=== PATIENT | female | born 1995 | race Caucasian/White ===

== ENCOUNTER 2020-06-22 07:33 | Inpatient (IN) ==
[2020-06-22] MEDS ORDERED: OXYTOCIN 30 UNITS/500 ML BAG IV PRN ×2 (07:42→08:29)
[2020-06-22] MEDS ORDERED: PENICILLIN G POTASSIUM 6 MU in DEXTROSE 5% 250 ML IV ONE (08:15)
[2020-06-22 08:17] LABS: Hematocrit (blood only) 32.7 % (37-47); Hemoglobin 10.8 g/dL (12.0-16.0); Mean Corpuscular Hemoglobin 24.8 pg (25-34); Mean Platelet Volume 12.3 fL (7.4-10.4); Platelet Count 150 K/uL (130-400); RDW Coefficient of Variation 14.3 % (11.5-14.5); RDW Standard Deviation 39.2 fL (36.4-46.3); Red Blood Count 4.36 M/uL (4.2-5.4); White Blood Count 8.72 K/uL (4.8-10.8)
[2020-06-22 08:37] LABS: Alanine Aminotransferase 30 U/L (12-78); Albumin Level 2.5 gm/dl (3.4-5.0); Aspartate Aminotransferase 23 U/L (15-37); BUN Creatinine Ratio 14.5 (10-20); Blood Urea Nitrogen 6 mg/dl (7-18); Calcium 9.1 mg/dl (8.5-10.1); Carbon Dioxide 21 mmol/L (21-32); Chloride 108 mmol/L (98-107); Creatinine Clr Calc Pharmacy 238.2 ml/min; Est GFR (African American) > 150.0; Glucose 114 mg/dl (70-99); Potassium 2.8 mmol/L (3.5-5.1); Sodium 138 mmol/L (136-145)
[2020-06-22 08:40] LABS: Albumin Globulin Ratio 0.7 (0.9-2); Alkaline Phosphatase 191 U/L (45-117); Bilirubin,Total 0.7 mg/dl (0.2-1); Globulin 3.8 gm/dl (2.5-4.0); Total Protein 6.3 gm/dl (6.4-8.2)
[2020-06-22] MEDS: LACTATED RINGER'S 1,000 ML IV PRN ×3 (09:51→21:45)
[2020-06-22] MEDS: PENICILLIN G POTASSIUM 3 MU in DEXTROSE 5% 100 ML IV PRN ×3 (14:04→21:46)
--- NOTE | 2020-06-22 14:09 | Communication Note ---
Date of Service: June 22, 2020 Patient due for PCN 2nd dose and my plan was to recheck and AROM at this point. Another patient is going to require section in the setting of failed TOLAC, therefore Padmini's pitocin will likely be held temporarily due to the scenario on L&D at this time, and we will resume active IOL and add AROM once staffing and scenario allows.
[2020-06-22] MEDS ORDERED: POTASSIUM CHLORIDE CRTAB 20 MEQ TABCR PO ONE ×2 (15:14→22:00)
--- NOTE | 2020-06-22 15:52 | Labor Progress Brief Note ---
Date of Service June 22, 2020 Subjective comfortable, not much cramping as pitocin has been off during care of other urgent issues on L&D. Assessment & Plan (1) Encounter for induction of labor: gHTN and A1GDM, medically indicated induction of labor. Began with adams, continued with pitocin and has been on PCN since Pit started this morning. Pitocin temporarily held due to other events on L&D, now resuming. AROM attempted but attempt was stopped so that patient can receive epidural, will re- attempt once patient able to tolerate the exam comfortably. Admission and Anticipated Discharge Date Admission Date: June 22, 2020 Physical Exam Physical Exam: Pitocin now restarting. /2 AROM attempted but unsuccessful; membranes quite tough, patient in pain with exam. Would like epidural before further attempts. T Cat 1 [place] spaced widely apart. Results & Data ([facility]) Vital Signs (Past 12 Hours) Vital Signs Temp Pulse Resp BP 06/22/20 15:21 88 133/86 06/22/20 15:15 98.2 F 16 06/22/20 14:05 82 129/84 06/22/20 13:00 98.2 F 81 18 125/69 06/22/20 12:06 86 120/75 06/22/20 11:05 97.9 F 80 20 118/72 06/22/20 09:56 81 145/84 H 06/22/20 07:51 98.1 F 20 06/22/20 07:49 93 H 140/95 Coding Level of Care Code None Diagnoses Encounter for induction of labor Z34.90
[2020-06-22] MEDS ORDERED: SODIUM CHLORIDE 0.9% INJ 10 ML VIAL ONE (16:02)
[2020-06-22] MEDS ORDERED: fentaNYL citrate 100 MCG/2 ML VIAL ONE (16:02)
[2020-06-22] MEDS ORDERED: ePHEDrine sulfate 50 MG/ML AMP ONE (16:02)
[2020-06-22] MEDS ORDERED: BUPIVACAINE 0.25% 30 ML VIAL ONE (16:02)
[2020-06-22] MEDS ORDERED: fentaNYL 2MCG/ML ROPIVACAINE 1.25MG/ML 100 ML BAG EPI ONE (16:03)
[2020-06-22] MEDS ORDERED: fentaNYL 2MCG/ML ROPIVACAINE 1.25MG/ML 100 ML BAG EPI PRN (16:51)
[2020-06-22] MEDS ORDERED: ePHEDrine sulfate 50 MG/ML AMP IV PRN (16:51)
[2020-06-22] MEDS ORDERED: NALOXONE HCL 1 MG in SODIUM CHLORIDE 0.9% 1000ML 1,000 ML IV PRN (16:51)
[2020-06-22] MEDS ORDERED: diphenhydrAMINE 50 MG/ML VIAL IV PRN (16:51)
[2020-06-22] MEDS ORDERED: NALOXONE HCL 0.4 MG/1 ML VIAL/CARP IV PRN (16:51)
[2020-06-22] MEDS ORDERED: ONDANSETRON INJ 2 MG/ML 2 ML VIAL IV PRN (16:51)
--- NOTE | 2020-06-22 16:54 | Anesthesiology Consultation ---
Date of Service June 22, 2020 Assessment & Plan Chart Review Chart Review: Patient NOT seen in Pre Admission Testing and Acceptable Risk for Labor Epidural Consults Requested none ASA ASA2 Proposed Anesthesia Anesthesia Type: Labor Epidural and CSE Risk / Benefits Reviewed With: PT / POA / Parent / Guardian, Accepts Plan and Informed Consent Obtained History Height/Weight Height: 5 ft 1 in Weight: 99.337 kg Allergies Allergy/AdvReac Type Severity Reaction Status Date / Time No Known Drug Allergies Allergy Unknown . Verified 06/22/20 08:12 cat dander Allergy Watery Eye Verified 06/22/20 08:12 Medications Home Medications Medication Instructions Recorded Confirmed Last Taken albuterol sulfate 90 mcg/actuation 2 puffs INH Q6H PRN 11/24/18 06/22/20 Unknown aerosol inhaler prenat.vits,javi,ddn-uzvo-wxnsl 1 tab PO QPM 12/01/19 06/22/20 06/21/20 23:00 acetone (urine) test #50 ea 04/18/20 06/21/20 Unknown aspirin 81 mg tablet,delayed 81 mg PO QPM 04/18/20 06/22/20 06/21/20 23:00 release blood sugar diagnostic #150 ea 04/18/20 06/21/20 Unknown blood-glucose meter #1 ea 04/18/20 06/21/20 Unknown lancets #102 ea 04/18/20 06/21/20 Unknown potassium chloride 40 meq PO BID 06/08/20 06/22/20 06/20/20 22:00 sertraline 150 mg PO QPM 06/08/20 06/22/20 06/21/20 23:00 Active Medications Generic Name Dose Route Start Last Admin Trade Name Freq PRN Reason Stop Dose Admin Penicillin G Potassium 3 mu/ 106 mls @ 100 mls/hr 06/22/20 07:42 06/22/20 14:04 Dextrose IV 07/02/20 07:41 100 mls/hr Q4H PRN Administration Give until delivery Lactated Ringer's 1,000 mls @ 125 mls/hr 06/22/20 07:42 06/22/20 16:48 Lr IV 06/24/20 07:41 125 mls/hr .Q8H PRN Infusion L&D Protocol Protocol Oxytocin 30 units in 500 mls @ 5 mls/hr 06/22/20 08:29 06/22/20 16:45 Pitocin IV 06/24/20 08:28 0.3 units/hr .Q24H PRN 5 mls/hr Labor Induction/Augmentation Titration Protocol 0.3 UNITS/HR NPO Date Last Intake of Fluids: 06/22/20 Time Last Intake of Fluids: 15:00 Date Last Intake of Solids: 06/22/20 Time Last Intake of Solids: 10:00 Past Medical History Medical History Asthma Chlamydia tx in 2013 Depression History of upper GI x-ray series Obesity Prediabetes Varicella vaccination Exercise / Class Metabolic Activity II 4-5 Yardwork/Stairs/Walk up hill Past Family History Family History Brother Allergic rhinitis Grandfather (Maternal) Coronary heart disease Father Lymphoma Grandmother (Maternal) Breast cancer Hypertension Hypothyroidism Mother Hypothyroidism Grandfather (Paternal) Parkinson disease Other Diabetes Heart disease Denies family history of Ovarian cancer Prostate cancer Myocardial infarction Colorectal cancer Stroke Past Surgical History Surgical History No pertinent past surgical history Past Anesthesia History No Hx of Anesthesia Complications and No Family Hx of Anesthesia Complications History of PONV No Hx of PONV and No Hx of Motion Sickness Social History Smoking Status: Never smoker Smoking cigarettes per day: quit 2017 Hx Alcohol Use: No Hx Substance Use: No substance use type: does not use Review of Systems no chest pain or sob Physical Exam Vital Signs Last Vital Signs Temp 36.8 C 06/22/20 15:15 Pulse 79 06/22/20 16:42 Resp 16 06/22/20 15:15 BP 133/86 06/22/20 15:21 Pulse Ox 98 06/22/20 16:42 Constitutional + obese ENMT Mouth: no TMJ abnormality Thyromental Distance: > or= 3.5 Finger Breadths Mallampati Class: II Neck normal visual inspection Respiratory normal respiratory effort Auscultation: lungs clear to auscultation bilaterally Cardiovascular Rate/Rhythm: regular rate and regular rhythm Musculoskeletal Spine: normal cervical ROM Neurologic moves all extremities Psychiatric Orientation: alert and oriented x 3 Testing Laboratory Results 06/22/20 07:58 06/22/20 07:58
[2020-06-22] MEDS ORDERED: Nursing to Pharmacy Communication SCH (22:15)
--- NOTE | 2020-06-22 23:40 | Labor Progress Brief Note ---
Date of Service June 22, 2020 Subjective Feeling more pressure Assessment & Plan (1) Encounter for induction of labor: Now adequate contractions, and making cervical change. Continue current management. Admission and Anticipated Discharge Date Admission Date: June 22, 2020 Physical Exam Physical Exam: /2 FHT Cat 1 Pit @ 25 MVU 210 Results & Data ([facility]) Vital Signs (Past 12 Hours) Vital Signs Temp Pulse Resp BP Pulse Ox 06/22/20 23:36 96 H 126/91 06/22/20 23:35 80 97 06/22/20 23:30 70 97 06/22/20 23:25 70 97 06/22/20 23:21 67 130/65 06/22/20 23:20 72 96 06/22/20 23:15 71 96 06/22/20 23:10 73 96 06/22/20 23:06 70 165/80 H 06/22/20 23:05 72 97 06/22/20 23:03 98.4 F 18 06/22/20 23:00 71 97 06/22/20 22:55 78 97 06/22/20 22:51 72 153/85 H 06/22/20 22:50 73 97 06/22/20 22:45 74 98 06/22/20 22:40 74 97 06/22/20 22:36 73 140/82 06/22/20 22:35 75 97 06/22/20 22:30 87 97 06/22/20 22:25 77 97 06/22/20 22:21 75 118/68 06/22/20 22:20 78 98 06/22/20 22:15 77 97 06/22/20 22:10 76 96 06/22/20 22:06 73 108/60 06/22/20 22:05 72 96 06/22/20 22:00 75 96 06/22/20 21:55 68 97 06/22/20 21:50 73 107/60 97 06/22/20 21:45 77 97 06/22/20 21:40 73 97 06/22/20 21:36 71 117/65 06/22/20 21:35 71 98 06/22/20 21:30 67 98 06/22/20 21:25 72 97 06/22/20 21:21 69 109/64 06/22/20 21:20 73 97 06/22/20 21:15 71 97 06/22/20 21:10 84 96 06/22/20 21:05 98.2 F 74 16 137/64 97 06/22/20 21:00 76 97 06/22/20 20:55 88 98 06/22/20 20:52 82 151/79 H 06/22/20 20:50 84 98 06/22/20 20:45 82 97 06/22/20 20:40 80 98 06/22/20 20:36 76 135/78 06/22/20 20:35 72 97 06/22/20 20:30 64 97 06/22/20 20:25 70 97 06/22/20 20:22 70 159/84 H 06/22/20 20:20 68 97 06/22/20 20:15 79 97 06/22/20 20:10 73 97 06/22/20 20:06 74 158/92 H 06/22/20 20:05 71 96 06/22/20 20:00 74 97 06/22/20 19:55 71 97 06/22/20 19:52 73 136/92 06/22/20 19:50 73 132/91 97 06/22/20 19:45 73 97 06/22/20 19:40 67 97 06/22/20 19:35 69 141/85 H 98 06/22/20 19:30 97.7 F 64 16 97 06/22/20 19:25 70 98 06/22/20 19:21 69 138/82 06/22/20 19:20 68 97 06/22/20 19:15 76 97 06/22/20 19:10 81 98 06/22/20 19:06 77 167/96 H 06/22/20 19:05 70 97 06/22/20 19:00 76 97 06/22/20 18:55 75 96 06/22/20 18:50 74 141/82 H 96 06/22/20 18:45 74 97 06/22/20 18:40 74 97 06/22/20 18:35 78 134/80 97 06/22/20 18:30 74 98 06/22/20 18:25 73 98 06/22/20 18:21 79 167/84 H 06/22/20 18:20 79 98 06/22/20 18:15 75 97 06/22/20 18:10 85 98 04/29/21 18:06 79 193/97 H 06/22/20 18:05 79 98 06/22/20 18:00 80 97 06/22/20 17:55 74 98 06/22/20 17:52 75 166/89 H 06/22/20 17:50 78 99 06/22/20 17:48 75 205/98 H 06/22/20 17:45 70 97 06/22/20 17:40 76 97 06/22/20 17:35 74 164/99 H 98 06/22/20 17:32 80 168/86 H 06/22/20 17:30 73 98 06/22/20 17:29 80 149/92 H 06/22/20 17:28 71 149/81 H 06/22/20 17:26 74 147/72 H 06/22/20 17:25 76 98 06/22/20 17:24 69 152/76 H 06/22/20 17:22 75 147/70 H 06/22/20 17:20 74 156/77 H 98 06/22/20 17:17 75 156/74 H 06/22/20 17:15 97.7 F 78 16 164/74 H 98 06/22/20 17:13 70 171/80 H 06/22/20 17:12 75 186/93 H 06/22/20 17:10 84 181/101 H 97 06/22/20 17:06 93 H 205/110 H 06/22/20 17:05 95 H 98 06/22/20 17:04 81 205/127 H 06/22/20 17:00 99 H 98 06/22/20 16:55 92 H 97 06/22/20 16:42 79 98 06/22/20 16:37 77 98 06/22/20 16:32 84 98 06/22/20 16:27 79 99 06/22/20 15:21 88 133/86 06/22/20 15:15 98.2 F 16 06/22/20 14:05 82 129/84 06/22/20 13:00 98.2 F 81 18 125/69 06/22/20 12:06 86 120/75 Coding Level of Care Code None Diagnoses Encounter for induction of labor Z34.90
[2020-06-23] MEDS: PENICILLIN G POTASSIUM 3 MU in DEXTROSE 5% 100 ML IV PRN (02:01)
[2020-06-23] MEDS ORDERED: NURSING L&D Epidural Breakthrough Pain Update ONE (02:22)
--- NOTE | 2020-06-23 04:39 | Delivery Summary ---
Vaginal Delivery Summary Date of Service June 23, 2020 Vaginal Delivery Summary DIAGNOSES: 1. Gao intrauterine at 37w2d gestation. 2. Induction of labor due to gestational hypertension without severe features and A1 gestational diabetes mellitus. 3. Group B Streptococcus Pos, adequately treated. PROCEDURE: Spontaneous vaginal delivery without laceration. SURGEON: Aubree Leonardo MD. CURING ROOM SUPERVISOR: None. ESTIMATED BLOOD LOSS: 300 mL. COMPLICATIONS: None. PLACENTA: Spontaneous and intact with a 3-vessel cord. DISPOSITION: Stable to labor and delivery. DESCRIPTION: The patient pushed well and brought the head to in DOA position. The 's head was allowed to deliver with contraction force and no further active pushing, with the perineum protected during this time. There was a nuchal cord, reduced on the perineum. The shoulders delivered easily with a maternal pushing effort. The body delivered without any difficulty, and the infant was placed on the maternal abdomen. It was vigorous and moving all extremities, and making respiratory efforts. The cord was doubly clamped by the MD and then cut by the FOB. The placenta delivered spontaneously and was noted to be intact and with a 3VC. The cervix, vagina and perineum were examined and were found to be without defect requiring repair. The fundus was firm and lochia minimal immediately after delivery. [facility] Vaginal Delivery Charge Vaginal Delivery Codes: 21596 global code for the antepartum, delivery, and post-
[2020-06-23] MEDS ORDERED: oxyCODONE/ACETAMINOPHEN 5mg/325mg TAB PO PRN (04:59)
[2020-06-23] MEDS ORDERED: SUPERCREAM 0.870% 15 GM JAR EXT PRN (04:59)
[2020-06-23] MEDS ORDERED: BENZOCAINE 20% AER SPR 82.5 GM CAN EXT PRN (04:59)
[2020-06-23] MEDS ORDERED: OXYTOCIN 30 UNITS/500 ML BAG IV PRN (04:59)
[2020-06-23] MEDS ORDERED: ACETAMINOPHEN 325 MG TAB PO PRN (04:59)
[2020-06-23] MEDS ORDERED: LACTATED RINGER'S 1,000 ML IV SCH (04:59)
[2020-06-23] MEDS ORDERED: DIPHTHERIA/TETANUS/PERTUSSIS 0.5 ML SYR/VIAL IM ONE (04:59)
[2020-06-23] MEDS ORDERED: HYDROCORTISONE ACETATE 25 MG SUPP PR PRN (04:59)
[2020-06-23] MEDS: IBUPROFEN 600 MG TAB PO PRN ×3 (06:18→20:54)
[2020-06-23] MEDS ORDERED: PRENATAL VITAMIN 1 TAB PO SCH (08:00)
--- NOTE | 2020-06-23 08:31 | Anesthesia Procedure Note ---
Date of Service June 23, 2020 Anesthesia Post Epidural Note Vital Signs Vital Signs: Temp Pulse Resp BP Pulse Ox 36.9 C 96 H 18 140/81 93 06/23/20 07:25 06/23/20 07:17 06/23/20 07:25 06/23/20 07:17 06/23/20 04:31 Pain Intensity Bilateral Abdomen: Pain Intensity: 6 Notes Mental Status: alert / awake / arousable Nausea / Vomiting: adequately controlled Pain: adequately controlled Airway Patency, RR, SpO2: stable & adequate BP & HR: stable & adequate Hydration State: stable & adequate Neuraxial Anesthesia: was administered and sensory block is resolving Anesthetic Complications: no major complications apparent Epidural: Removed without complications and With tip intact
[2020-06-23] MEDS: DOCUSATE SODIUM 100 MG CAP PO SCH (20:54)
[2020-06-23] MEDS ORDERED: SERTRALINE HCL 50 MG TABLET PO SCH (21:00)
[2020-06-24] MEDS: IBUPROFEN 600 MG TAB PO PRN ×2 (03:17→08:20)
[2020-06-24 06:23] LABS: Mean Corpuscular Hgb Conc 32.5 g/dL (32-36)
[2020-06-24 06:41] LABS: Hematocrit (blood only) 29.5 % (37-47); Hemoglobin 9.6 g/dL (12.0-16.0); Mean Corpuscular Hemoglobin 24.6 pg (25-34); Mean Corpuscular Volume 75.6 fL (80-100); RDW Coefficient of Variation 14.6 % (11.5-14.5); RDW Standard Deviation 40.2 fL (36.4-46.3); White Blood Count 9.75 K/uL (4.8-10.8)
[2020-06-24 06:44] LABS: Mean Platelet Volume 12.2 fL (7.4-10.4); Platelet Count 137 K/uL (130-400)
[2020-06-24 06:45] LABS: Platelet Estimate Normal (Normal)
--- NOTE | 2020-06-24 07:07 | Obstetrical Progress Note ---
Date of Service <Adrien Hunter MD - Last Filed: 06/24/20 07:26> June 24, 2020 Assessment & Plan <Adrien Hunter MD - Last Filed: 06/24/20 07:26> (1) Encounter for induction of labor: Padmini Beckford is a 25yo female on PPD#1 following IOL at 37+2wga. * Patient feels well today; eating well, voiding well, ambulating well * Pain well-controlled with ibuprofen 600mg q4h prn * PNL: Rh pos, RI, GBS pos, COVID neg * Routine care: OOB, ambulation, diet progression as tolerated * After discharge, will have six-week follow-up with Dr. Leonardo * Subjective <Adrien Hunter MD - Last Filed: 06/24/20 07:26> Padmini Beckford is a 25yo female on PPD#1 following IOL at 37+2wga. This morning she reports feeling well overall. Reports mild, 1/10 crampy abdominal pain well-managed on analgesics. Tolerating PO intake without nausea or vomiting. Patient has been able to ambulate without lightheadedness or dizziness. Voiding well without difficulty. Lochia continues, though with some improvement this morning. Currently . Review of Systems Denies fever, chills, CP, SOB, cough, breast pain, dysuria, leg pain, leg swelling, headache, and changes in vision. Physical Exam <Adrien Hunter MD - Last Filed: 06/24/20 07:26> General: alert, oriented, no acute distress Cardiac: regular rate and rhythm, no murmurs appreciated Respiratory: lungs clear to auscultation bilaterally a/p, no wheezes/rales/rhonchi, no increased work of breathing, symmetrical chest rise, no respiratory distress Abdomen: soft, minimally tender, nondistended, bowel sounds present Uterus: uterine fundus firm, palpable below umbilicus Lower extremities: no lower extremity edema or swelling, no deep calf pain, Oumou's negative bilaterally Results & Data ([facility]) <Adrien Hunter MD - Last Filed: 06/24/20 07:26> Vital Signs (Past 12 Hours) Vital Signs Temp Pulse Resp BP 06/24/20 03:30 36.4 C L 85 18 123/86 06/23/20 23:45 36.5 C 91 H 18 121/88 06/23/20 19:50 36.5 C 99 H 18 129/81 <Vika Palumbo DO - Last Filed: 06/24/20 07:28> Co-Signing Physician Notes Resident Physician Supervision Note: I was present with Dr. Hunter during the history and exam. I discussed the case with the resident and agree with the findings and plan as documented in the note. Any exceptions or clarifications are listed here: PPD#1 doing well. Documented By: Vika Palumbo DO Resident Activity Tracking <Adrien Hunter MD - Last Filed: 06/24/20 07:26> Resident Involvement: Resident Care Provided Care Provided: OB Delivery
--- NOTE | 2020-06-24 07:15 | Obstetrical Progress Note ---
Date of Service June 24, 2020 Assessment & Plan (1) Encounter for induction of labor: PPD#1 doing well. Subjective Ambulation: ambulating normally Voiding: no voiding problems Diet Tolerance:: regular diet Lochia:: Moderate Feeding Type:: breast feeding PPD#1 doing well Review of Systems All systems reviewed & are unremarkable except as noted in HPI & below Physical Exam Constitutional WD/WN, vitals as above no acute distress Respiratory normal respiratory effort Cardiovascular Rate/Rhythm: regular rate and regular rhythm Gastrointestinal (Abdomen) Inspection/Auscultation: abdomen normal to inspection; abdomen not distended Percussion/Palpation: abdomen soft Genitourinary OB Exam Abdomen: + fundal height Fundus: + firm; not tender Results & Data ([facility]) Vital Signs (Past 12 Hours) Vital Signs Temp Pulse Resp BP 06/24/20 03:30 36.4 C L 85 18 123/86 06/23/20 23:45 36.5 C 91 H 18 121/88 06/23/20 19:50 36.5 C 99 H 18 129/81
[2020-06-24] MEDS: DOCUSATE SODIUM 100 MG CAP PO SCH (08:19)
== END 2020-06-24 13:45 | disposition home or self-care (01) | DRG 807 ==
LOC: 4S1 07:33 → 4S2 06-23 07:39

== ENCOUNTER 2022-01-21 14:16 | Inpatient (IN) ==
[2022-01-21] MEDS ORDERED: LACTATED RINGER'S 1,000 ML IV PRN (15:03)
[2022-01-21] MEDS ORDERED: LIDOCAINE 1% LOCAL 20 ML VIAL INFIL PRN (15:03)
--- NOTE | 2022-01-21 15:19 | History & Physical Report ---
Date of Service January 21, 2022 Assessment & Plan (1) Gestational diabetes mellitus (GDM) affecting , antepartum: Plan: Patient is a -0-0-1 female seen at the office for possible labor check was noted to have mild variables on her NST and sent to labor and delivery for further evaluation. Patient appears to be in early labor. There are occasional very mild variables present. We will admit her and allow her to ambulate once we have reactive strip. Blood pressures are normal today although she has a history of gestational hypertension in the past. Epidural when requested. We will wait till epidural is in place prior to rupturing membranes. Anticipate vaginal delivery. History of Present Illness Primary Care Provider: Roselia Summers PA-C Patient is a 26-year-old 2 para 1-0-0-1 female EDC 01/24/2022 who presented to the office with bloody show and increasingly more intense contractions. They are about mild variables noted on the nonstress test at the office. She was sent for further evaluation in labor and delivery. contractions are still somewhat irregular from every 3 to 7 minutes apart. She denies any leaking fluid and the baby has been active. has been complicated by gestational diabetes controlled with diet and a history of glomerular proteinuria first diagnosed with her first . Most recent 24-hour urine collection was less than 300 mg. She had a diagnosis of gestational hypertension with her first as well although blood pressures today are within the normal range. GBS is negative. Allergies Allergy/AdvReac Type Severity Reaction Status Date / Time cat dander Allergy Watery Eye Verified 01/14/22 08:54 Iodinated Contrast Media Allergy Wheezing Verified 01/14/22 08:54 Home Medications Medication Instructions Recorded Confirmed Type albuterol sulfate 90 mcg/actuation 2 puffs inhalation Q6H PRN 11/24/18 01/21/22 History aerosol inhaler (ProAir HFA) Shortness Of Breath prenat.vits,javi,qkt-uert-kbkbd 1 tab PO QPM 12/01/19 01/21/22 History acetone (urine) test (Ketone Urine #50 ea 08/02/21 01/14/22 Rx Test strips) blood sugar diagnostic (Accu-Chek #150 ea 08/02/21 01/14/22 Rx Guide test strips) lancets (Accu-Chek Softclix #150 ea 08/02/21 01/14/22 Rx Lancets) aspirin 81 mg tablet,delayed 81 mg PO DAILY 08/15/21 01/21/22 History release (Adult Low Dose Aspirin) ferrous sulfate [Iron (ferrous 325 mg PO 3XWK 11/21/21 01/21/22 History sulfate)] sertraline 100 mg tablet 150 mg PO DAILY 12/30/21 01/21/22 History Patient History Medical History Asthma Chlamydia Depression History of upper GI x-ray series Obesity Prediabetes Varicella vaccination Surgical History No pertinent past surgical history Family History Brother Allergic rhinitis Grandfather (Maternal) Coronary heart disease Father Lymphoma Grandmother (Maternal) Breast cancer Hypertension Hypothyroidism Mother Hypothyroidism Grandfather (Paternal) Parkinson disease Other Diabetes Heart disease Denies family history of Ovarian cancer Prostate cancer Myocardial infarction Colorectal cancer Stroke Social History (Updated 01/21/22 @ 14:34 by Liz Pendleton RN) Smoking Status: Former smoker Cigarettes Per Day: quit 2016; Second Hand Exposure: No; Hx Alcohol Use: No Hx Substance Use: No Preferred Language: Lao Communication Ability: Effective Visual Impairment: Limited Hearing Ability: Normal Medical Records Tech Required: No Beliefs That Will Affect Care: None marital status: marital status details: Charanjit Beckford (29) [phone] Current Living Situation: Spouse Current Living Situation Comment: lives with spouse, son, dogs current occupational status: employed current occupation: [employer] How many Children do You have: 1 Feels Safe at Home: Yes Safety Concerns: Feels Safe At This Time Childhood Exposure to Second-Hand Smoke: Yes Dental Care, Regularly: No Physical Activity Frequency: 1-2 Times per Week Seatbelt Use: always Sunscreen Use: Yes Assistive Devices: None Review of Systems All systems reviewed & are unremarkable except as noted in HPI & below Physical Exam Constitutional: WD/WN, vitals as above Psychiatric: A+Ox3, euthymic affect Genitourinary: OB Exam Abdomen: + vertex, + estimated weight (7-8 pounds) and + irregular contractions (mild -moderate Q3-7 minutes apart) Manual OB Exam: + cervical dilation 4 cm, + cervical effacement 80% and + station -2 OB Exam Monitor Tracing: + external FHT monitor used, + external uterine monitor used, + category II (occasional mild variables. ) and + normal FHT variability Results & Data ([facility]) Vital Signs (Past 12 Hours) Vital Signs Pulse Resp BP 01/21/22 14:36 18 01/21/22 14:41 94 H 101/56 L Code Status & VTE Plan VTE Prophylaxis Plan VTE Prophylaxis will be ordered: No Coding Level of Care Code None Diagnoses Gestational diabetes mellitus (GDM) affecting , antepartum O24.419
[2022-01-21 15:45] LABS: Hematocrit (blood only) 39.2 % (34.1-44.9); Mean Corpuscular Hemoglobin 25.4 pg (25.0-34.0); Mean Corpuscular Hgb Conc 33.2 g/dL (32.0-36.0); Mean Corpuscular Volume 76.7 fL (80.0-100.0); RDW Coefficient of Variation 15.9 % (11.5-14.5); RDW Standard Deviation 44.1 fL (36.4-46.3); Red Blood Count 5.11 M/uL (3.93-5.22); White Blood Count 9.89 K/ul (4.8-10.8)
[2022-01-21 16:15] LABS: Platelet Count 137 K/uL (130-400)
[2022-01-21] MEDS ORDERED: LIDOCAINE 2%/EPINEPHRINE 1:200,000 20 ML SDV ONE (18:03)
[2022-01-21] MEDS ORDERED: SODIUM CHLORIDE 0.9% INJ 10 ML VIAL ONE (18:03)
[2022-01-21] MEDS ORDERED: fentaNYL 2MCG/ML ROPIVACAINE 1.25MG/ML 100 ML BAG EPI ONE (18:03)
[2022-01-21] MEDS ORDERED: ePHEDrine sulfate 50 MG/ML AMP ONE (18:03)
[2022-01-21] MEDS ORDERED: BUPIVACAINE 0.25% 30 ML VIAL ONE (18:03)
[2022-01-21] MEDS ORDERED: fentaNYL citrate 100 MCG/2 ML VIAL ONE (18:03)
[2022-01-21] MEDS ORDERED: ONDANSETRON INJ 2 MG/ML 2 ML VIAL IV PRN (18:16)
[2022-01-21] MEDS ORDERED: diphenhydrAMINE 50 MG/ML VIAL IV PRN (18:16)
[2022-01-21] MEDS ORDERED: NALOXONE HCL 1 MG in SODIUM CHLORIDE 0.9% 1000ML 1,000 ML IV PRN (18:16)
[2022-01-21] MEDS ORDERED: fentaNYL 2MCG/ML ROPIVACAINE 1.25MG/ML 100 ML BAG EPI PRN (18:16)
[2022-01-21] MEDS ORDERED: ePHEDrine sulfate 50 MG/ML AMP IV PRN (18:16)
[2022-01-21] MEDS ORDERED: NALOXONE HCL 0.4 MG/1 ML VIAL/CARP IV PRN (18:16)
[2022-01-21] MEDS ORDERED: NALBUPHINE HCL INJ 10 MG/ML AMP IV PRN (18:16)
--- NOTE | 2022-01-21 18:16 | Anesthesiology Consultation ---
Date of Service January 21, 2022 Assessment & Plan ASA ASA3 Proposed Anesthesia Anesthesia Type: Labor Epidural Risk / Benefits Reviewed With: PT / POA / Parent / Guardian, Accepts Plan and Informed Consent Obtained History Height/Weight Height: 5 ft 1 in Weight: 101.605 kg Allergies Allergy/AdvReac Type Severity Reaction Status Date / Time cat dander Allergy Watery Eye Verified 01/14/22 08:54 Iodinated Contrast Media Allergy Wheezing Verified 01/14/22 08:54 Medications Home Medications Medication Instructions Recorded Confirmed Last Taken albuterol sulfate 90 mcg/actuation 2 puffs inhalation Q6H PRN 11/24/18 01/21/22 Unknown aerosol inhaler (ProAir HFA) Shortness Of Breath prenat.vits,javi,jbp-vtjm-sowfv 1 tab PO QPM 12/01/19 01/21/22 01/20/22 23:00 acetone (urine) test (Ketone Urine #50 ea 08/02/21 01/14/22 Unknown Test strips) blood sugar diagnostic (Accu-Chek #150 ea 08/02/21 01/14/22 Unknown Guide test strips) lancets (Accu-Chek Softclix #150 ea 08/02/21 01/14/22 Unknown Lancets) aspirin 81 mg tablet,delayed 81 mg PO DAILY 08/15/21 01/21/22 01/20/22 23:00 release (Adult Low Dose Aspirin) ferrous sulfate [Iron (ferrous 325 mg PO 3XWK 11/21/21 01/21/22 01/18/22 sulfate)] sertraline 100 mg tablet 150 mg PO DAILY 12/30/21 01/21/22 01/20/22 23:00 Past Medical History Medical History Asthma Chlamydia tx in 2013 Depression History of upper GI x-ray series Obesity Prediabetes Varicella vaccination Exercise / Class Metabolic Activity II 4-5 Yardwork/Stairs/Walk up hill Past Family History Family History Brother Allergic rhinitis Grandfather (Maternal) Coronary heart disease Father Lymphoma Grandmother (Maternal) Breast cancer Hypertension Hypothyroidism Mother Hypothyroidism Grandfather (Paternal) Parkinson disease Other Diabetes Heart disease Denies family history of Ovarian cancer Prostate cancer Myocardial infarction Colorectal cancer Stroke Past Surgical History Surgical History No pertinent past surgical history Past Anesthesia History No Hx of Anesthesia Complications and No Family Hx of Anesthesia Complications History of PONV No Hx of PONV and No Hx of Motion Sickness Social History Smoking Status: Former smoker tobacco type: cigarettes Smoking cigarettes per day: quit 2017 Hx Alcohol Use: No Hx Substance Use: No substance use type: does not use Review of Systems denies fever/cough/ colds/ chest pain/ SOB/ SANDY denies SANDY Physical Exam Vital Signs Last Vital Signs Temp 36.5 C 01/21/22 14:41 Pulse 96 H 01/21/22 19:00 Resp 18 01/21/22 18:46 BP 120/71 01/21/22 19:00 Pulse Ox 96 01/21/22 18:58 ENMT Mouth: no TMJ abnormality and no dentition abnormality Thyromental Distance: > or= 3.5 Finger Breadths Mallampati Class: II Neck neck extension not limited Respiratory normal respiratory effort; no respiratory distress Auscultation: lungs clear to auscultation bilaterally Cardiovascular Rate/Rhythm: regular rate and regular rhythm Neurologic moves all extremities Psychiatric Orientation: alert and oriented x 3 Testing Laboratory Results 01/21/22 15:22
[2022-01-21] MEDS: OXYTOCIN 30 UNITS/500 ML BAG IV PRN (22:53)
[2022-01-21] MEDS ORDERED: HYDROCORTISONE ACETATE 25 MG SUPP PR PRN (22:58)
[2022-01-21] MEDS ORDERED: BENZOCAINE 20% AER SPR 82.5 GM CAN EXT PRN (22:58)
[2022-01-21] MEDS ORDERED: ACETAMINOPHEN 325 MG TAB PO PRN (22:58)
[2022-01-21] MEDS ORDERED: oxyCODONE/ACETAMINOPHEN 5mg/325mg TAB PO PRN (22:58)
[2022-01-21] MEDS ORDERED: OXYTOCIN 30 UNITS/500 ML BAG IV PRN (22:58)
[2022-01-21] MEDS ORDERED: DIPHTHERIA/TETANUS/PERTUSSIS 0.5 ML SYR/VIAL IM ONE (22:58)
--- NOTE | 2022-01-21 23:26 | Anesthesia Procedure Note ---
Date of Service January 21, 2022 Anesthesia Post Epidural Note Vital Signs Vital Signs: Temp Pulse Resp BP Pulse Ox O2 Del Method 37.0 C 93 H 20 125/76 88 L 01/21/22 21:25 01/21/22 23:22 01/21/22 22:00 01/21/22 23:22 01/21/22 22:51 01/21/22 19:15 Pain Intensity Lower Abdomen: Pain Intensity: 2 Notes Mental Status: alert / awake / arousable and participated in evaluation Nausea / Vomiting: adequately controlled Pain: adequately controlled Airway Patency, RR, SpO2: stable & adequate BP & HR: stable & adequate Hydration State: stable & adequate Neuraxial Anesthesia: was administered and sensory block is resolving Anesthetic Complications: no major complications apparent and Pt Satisfied with anesthetic care Epidural: Removed without complications and With tip intact
--- NOTE | 2022-01-21 23:31 | Delivery Summary ---
Vaginal Delivery Summary Date of Service January 21, 2022 Vaginal Delivery Summary [facility] Patient is a 26-year-old 2 para 1-0-0-1 female who presented in early labor. She progressed to 6 cm dilated requested epidural analgesia. Membranes were then ruptured for clear fluid and she progressed to full dilation. She pushed effectively over intact perineum for delivery of a viable male infant. After the head was delivered a body cord was reduced and the rest of the was delivered easily and was placed on the mother's abdomen for further attention and drying. There was poor respiratory effort (patient takes 150 mg of Zoloft daily ) so the cord was clamped and cut prior to 1 minute. Following stimulation and warming on the baby bed the infant had excellent tone normal respiratory effort heart rate and color. After obtaining cord blood, the placenta was expressed intact with a three-vessel cord. Perineum was noted to be intact. Straight cathed using sterile technique was performed. Approximately 200 cc of urine were obtained. bleeding was controlled with dilute Pitocin and fundal massage. Estimated blood loss is 200 cc. Mother and were doing well after delivery. [facility] Vaginal Delivery Charge Delivery Type Details: [facility]
[2022-01-22] MEDS: OXYTOCIN 30 UNITS/500 ML BAG IV PRN (00:23)
[2022-01-22] MEDS ORDERED: SODIUM CHLORIDE 0.9% 250 ML IV PRN (01:44)
--- NOTE | 2022-01-22 07:45 | Obstetrical Progress Note ---
Date of Service <Javad CheemaAndrew Ulloa DO - Last Filed: 01/22/22 08:14> January 22, 2022 Assessment & Plan <Javad CheemaAndrew Ulloa DO - Last Filed: 01/22/22 08:14> (1) Status post vaginal delivery: - Feels well today. Eating well, voiding well, ambulating well. - Pain well controlled with ibuprofen 600mg Q4H PRN - Routine care -- OOB, ambulation, diet progression as tolerated - After discharge will have 6 week follow-up with Dr. Caldwell - Patient had proteuria with previous and was elevated one month ago. Though the proteuria during this was not has high has it was previously. Should have urine protein testing in 6 weeks after D/C and f/u with nephrology may be needed at that time. <Qi Zabala MD, FACOG - Last Filed: 01/22/22 08:25> (1) Status post vaginal delivery: Subjective <Javaddory Ulloa DO - Last Filed: 01/22/22 08:14> Ambulation: ambulating normally Voiding: no voiding problems Passing Gas:: Yes Diet Tolerance:: regular diet Lochia:: Small Feeding Type:: breast feeding Current Pain Level(1-10): 4 Patient is a 27 y/o female who is now PPD # 1 following spontaneous vaginal delivery at 39 weeks. Reports feeling well overall this morning. Mild abdominal cramping & 4/10 pain well managed on analgesics. Voiding well. Tolerating meals overnight and able to ambulate some. Able to pass gas and has not had a bowel movement at this time. Has some persistent lochia with some improvement this morning. Currently breast feeding. Review of Systems Denies fever, chills, sweats Denies shortness of breath, difficulty breathing, chest pain, palpitations, chest pressure. Denies breast pain. Denies dysuria. Denies headache or changes in vision. Physical Exam <Javaddory Ulloa DO - Last Filed: 01/22/22 08:14> General: Alert, oriented. No acute distress. Cardiac: Regular rate and rhythm, no murmurs/rubs/gallops. Respiratory: Clear to auscultation bilaterally a/p, no wheezes/rales/rhonchi. No increased work of breathing. Symmetrical chest rise. No respiratory distress. Abdomen: Soft, nontender, nondistended. Bowel sounds present. Uterus: Uterine fundus firm, palpable 1-2 cm below umbilicus. Lower Extremities: No lower extremity edema or swelling. No deep calf pain. Oumou's negative bilaterally. Results & Data ([facility]) <Javad Ulloa, DO - Last Filed: 01/22/22 08:14> Vital Signs (Past 12 Hours) Vital Signs Temp Pulse Pulse Resp BP BP Pulse Ox 01/22/22 03:00 37.3 C 109 H 20 113/79 97 01/22/22 00:55 20 01/21/22 23:35 18 01/21/22 23:20 20 01/21/22 23:05 20 01/22/22 00:20 18 01/21/22 23:50 18 01/21/22 22:50 18 01/22/22 00:52 114 H 123/78 01/22/22 00:37 114 H 137/62 01/22/22 00:22 107 H 131/61 01/22/22 00:09 97 H 135/64 01/21/22 23:52 101 H 01/21/22 23:52 122/70 01/21/22 23:37 112 H 01/21/22 23:37 116/69 01/21/22 23:22 93 H 01/21/22 23:22 125/76 01/21/22 23:08 96 H 01/21/22 23:08 119/72 01/21/22 22:51 88 L 01/21/22 22:51 94 H 01/21/22 22:50 85 01/21/22 22:50 111/69 01/21/22 22:48 95 01/21/22 22:48 90 01/21/22 22:43 95 01/21/22 22:43 85 01/21/22 22:41 93 01/21/22 22:41 87 01/21/22 22:38 96 01/21/22 22:38 95 H 01/21/22 22:33 95 01/21/22 22:33 109 H 01/21/22 22:32 94 01/21/22 22:32 109 H 01/21/22 22:28 89 L 01/21/22 22:28 121 H 01/21/22 22:25 94 01/21/22 22:25 118 H 01/21/22 22:23 98 01/21/22 22:23 118 H 01/21/22 22:18 97 01/21/22 22:18 113 H 01/21/22 22:16 98 H 01/21/22 22:16 111/73 01/21/22 22:13 97 01/21/22 22:13 105 H 01/21/22 22:08 97 01/21/22 22:08 113 H 01/21/22 22:00 20 01/21/22 22:00 20 01/21/22 22:03 97 01/21/22 22:03 109 H 01/21/22 22:01 113 H 01/21/22 22:01 111/76 01/21/22 21:58 97 01/21/22 21:58 99 H 01/21/22 21:53 96 01/21/22 21:53 100 H 01/21/22 21:48 97 01/21/22 21:48 99 H 01/21/22 21:46 105 H 01/21/22 21:46 118/77 01/21/22 21:43 97 01/21/22 21:43 108 H 01/21/22 21:38 97 01/21/22 21:38 109 H 01/21/22 21:25 37.0 C 01/21/22 21:33 95 01/21/22 21:33 95 H 01/21/22 21:30 99 H 01/21/22 21:30 123/79 01/21/22 21:28 97 01/21/22 21:28 95 H 01/21/22 21:23 97 01/21/22 21:23 98 H 01/21/22 21:18 98 01/21/22 21:18 114 H 01/21/22 21:15 112 H 01/21/22 21:15 132/79 01/21/22 21:13 98 01/21/22 21:13 97 H 01/21/22 21:00 18 01/21/22 21:00 18 01/21/22 21:08 97 01/21/22 21:08 84 01/21/22 21:03 97 01/21/22 21:03 100 H 01/21/22 21:00 100 H 01/21/22 21:00 122/82 01/21/22 20:58 97 01/21/22 20:58 95 H 01/21/22 20:53 97 01/21/22 20:53 95 H 01/21/22 20:48 97 01/21/22 20:48 86 01/21/22 20:46 83 01/21/22 20:46 124/82 01/21/22 20:43 97 01/21/22 20:43 104 H 01/21/22 20:38 97 01/21/22 20:38 93 H 01/21/22 20:30 20 01/21/22 20:30 20 01/21/22 20:33 96 01/21/22 20:33 91 H 01/21/22 20:32 89 01/21/22 20:32 124/83 01/21/22 20:28 97 01/21/22 20:28 101 H 01/21/22 20:23 96 01/21/22 20:23 83 01/21/22 20:18 97 01/21/22 20:18 94 H 01/21/22 20:16 97 H 01/21/22 20:16 122/84 01/21/22 20:13 97 01/21/22 20:13 87 01/21/22 20:08 95 01/21/22 20:08 86 01/21/22 20:03 97 01/21/22 20:03 78 01/21/22 20:00 16 01/21/22 20:00 16 01/21/22 20:01 95 H 01/21/22 20:01 120/81 01/21/22 19:58 97 01/21/22 19:58 92 H 01/21/22 19:53 97 01/21/22 19:53 98 H 01/21/22 19:48 98 01/21/22 19:48 94 H 01/21/22 19:46 96 H 01/21/22 19:46 131/80 O2 Del Method 01/22/22 03:00 Room Air 01/22/22 00:55 01/21/22 23:35 01/21/22 23:20 01/21/22 23:05 01/22/22 00:20 01/21/22 23:50 01/21/22 22:50 01/22/22 00:52 01/22/22 00:37 01/22/22 00:22 01/22/22 00:09 01/21/22 23:52 01/21/22 23:52 01/21/22 23:37 01/21/22 23:37 01/21/22 23:22 01/21/22 23:22 01/21/22 23:08 01/21/22 23:08 01/21/22 22:51 01/21/22 22:51 01/21/22 22:50 01/21/22 22:50 01/21/22 22:48 01/21/22 22:48 01/21/22 22:43 01/21/22 22:43 01/21/22 22:41 01/21/22 22:41 01/21/22 22:38 01/21/22 22:38 01/21/22 22:33 01/21/22 22:33 01/21/22 22:32 01/21/22 22:32 01/21/22 22:28 01/21/22 22:28 01/21/22 22:25 01/21/22 22:25 01/21/22 22:23 01/21/22 22:23 01/21/22 22:18 01/21/22 22:18 01/21/22 22:16 01/21/22 22:16 01/21/22 22:13 01/21/22 22:13 01/21/22 22:08 01/21/22 22:08 01/21/22 22:00 01/21/22 22:00 01/21/22 22:03 01/21/22 22:03 01/21/22 22:01 01/21/22 22:01 01/21/22 21:58 01/21/22 21:58 01/21/22 21:53 01/21/22 21:53 01/21/22 21:48 01/21/22 21:48 01/21/22 21:46 01/21/22 21:46 01/21/22 21:43 01/21/22 21:43 01/21/22 21:38 01/21/22 21:38 01/21/22 21:25 01/21/22 21:33 01/21/22 21:33 01/21/22 21:30 01/21/22 21:30 01/21/22 21:28 01/21/22 21:28 01/21/22 21:23 01/21/22 21:23 01/21/22 21:18 01/21/22 21:18 01/21/22 21:15 01/21/22 21:15 01/21/22 21:13 01/21/22 21:13 01/21/22 21:00 01/21/22 21:00 01/21/22 21:08 01/21/22 21:08 01/21/22 21:03 01/21/22 21:03 01/21/22 21:00 01/21/22 21:00 01/21/22 20:58 01/21/22 20:58 01/21/22 20:53 01/21/22 20:53 01/21/22 20:48 01/21/22 20:48 01/21/22 20:46 01/21/22 20:46 01/21/22 20:43 01/21/22 20:43 01/21/22 20:38 01/21/22 20:38 01/21/22 20:30 01/21/22 20:30 01/21/22 20:33 01/21/22 20:33 01/21/22 20:32 01/21/22 20:32 01/21/22 20:28 01/21/22 20:28 01/21/22 20:23 01/21/22 20:23 01/21/22 20:18 01/21/22 20:18 01/21/22 20:16 01/21/22 20:16 01/21/22 20:13 01/21/22 20:13 01/21/22 20:08 01/21/22 20:08 01/21/22 20:03 01/21/22 20:03 01/21/22 20:00 01/21/22 20:00 01/21/22 20:01 01/21/22 20:01 01/21/22 19:58 01/21/22 19:58 01/21/22 19:53 01/21/22 19:53 01/21/22 19:48 01/21/22 19:48 01/21/22 19:46 01/21/22 19:46 <Qi Zabala MD, FACOG - Last Filed: 01/22/22 08:25> Co-Signing Physician Notes Resident Physician Supervision Note: I interviewed and examined the patient. Discussed with Dr. Ulloa and agree with findings and plan as documented in the note. Any exceptions or clarifications are listed here: [None] Documented By: Qi Zabala MD, FACOG Resident Activity Tracking <Javad Ulloa DO - Last Filed: 01/22/22 08:14> Resident Involvement: Resident Care Provided Care Provided: OB Delivery
[2022-01-22] MEDS: PRENATAL VITAMIN 1 TAB PO SCH (08:25)
[2022-01-22] MEDS: DOCUSATE SODIUM 100 MG CAP PO SCH ×2 (08:25→21:11)
[2022-01-22 10:01] LABS: Hematocrit (blood only) 33.2 % (34.1-44.9); Hemoglobin 10.8 g/dl (12.0-16.0); Mean Corpuscular Hemoglobin 25.2 pg (25.0-34.0); Mean Corpuscular Hgb Conc 32.5 g/dL (32.0-36.0); Mean Corpuscular Volume 77.6 fL (80.0-100.0); RDW Coefficient of Variation 16.3 % (11.5-14.5); RDW Standard Deviation 45.5 fL (36.4-46.3); Red Blood Count 4.28 M/uL (3.93-5.22); White Blood Count 11.19 K/ul (4.8-10.8)
[2022-01-22] MEDS: SERTRALINE HCL 50 MG TABLET PO SCH (10:10)
[2022-01-22 10:36] LABS: Mean Platelet Volume 13.8 fL (9.4-12.3); Platelet Count 132 K/uL (130-400)
[2022-01-22] MEDS: IBUPROFEN 600 MG TAB PO PRN ×3 (11:50→21:15)
[2022-01-22] MEDS ORDERED: bisacodyL 5 MG TABEC PO SCH (20:00)
[2022-01-23] MEDS ORDERED: bisacodyL 10 MG SUPP PR PRN
--- NOTE | 2022-01-23 07:19 | Obstetrical Progress Note ---
Date of Service <Javad Ulloa - Last Filed: 01/23/22 08:34> January 23, 2022 Assessment & Plan <Javad Ulloa - Last Filed: 01/23/22 08:34> (1) Status post vaginal delivery: - Feels well today. Eating well, voiding well, ambulating well. - Pain well controlled with ibuprofen 600mg Q4H PRN - Routine care -- OOB, ambulation, diet progression as tolerated - After discharge will have 6 week follow-up with Dr. Caldwell - Patient had proteuria with previous and was elevated one month ago. Though the proteuria during this was not has high has it was previously. Should have urine protein testing in 6 weeks after D/C and f/u with nephrology may be needed at that time. - Will D/C today. <Amol Herrera MD - Last Filed: 01/24/22 14:41> (1) Status post vaginal delivery: Subjective <Javad CheemaAndrew Justinoreol - Last Filed: 01/23/22 08:34> Patient is a 27 y/o female who is now PPD # 2 following spontaneous vaginal delivery at 39 weeks. Reports feeling well overall this morning. Mild abdominal cramping & 1/10 pain well managed on analgesics. Voiding well. Tolerating meals overnight and able to ambulate some. Able to pass gas and has not had a bowel movement at this time. Has some persistent lochia with some improvement this morning. Currently breast feeding. Review of Systems Denies fever, chills, sweats Denies shortness of breath, difficulty breathing, chest pain, palpitations, chest pressure. Denies breast pain. Denies dysuria. Denies headache or changes in vision. Physical Exam <Javad Badilloroel - Last Filed: 01/23/22 08:34> General: Alert, oriented. No acute distress. Cardiac: Regular rate and rhythm, no murmurs/rubs/gallops. Respiratory: Clear to auscultation bilaterally a/p, no wheezes/rales/rhonchi. No increased work of breathing. Symmetrical chest rise. No respiratory distress. Abdomen: Soft, nontender, nondistended. Bowel sounds present. Uterus: Uterine fundus firm, palpable 2 cm below umbilicus. Lower Extremities: No lower extremity edema or swelling. No deep calf pain. Oumou's negative bilaterally. Results & Data ([facility]) <Javad Ulloa DO - Last Filed: 01/23/22 08:34> Vital Signs (Past 12 Hours) Vital Signs Temp Pulse Resp BP Pulse Ox O2 Del Method 01/22/22 23:50 36.6 C 94 H 18 116/83 99 Room Air 01/22/22 21:15 36.4 C L 98 H 18 123/89 97 Room Air <Amol Herrera MD - Last Filed: 01/24/22 14:41> Co-Signing Physician Notes Patient seen and evaluated with resident and agree with the findings and plan. Routine care. Resident Activity Tracking <Javad Ulloa DO - Last Filed: 01/23/22 08:34> Resident Involvement: Resident Care Provided Care Provided: OB Delivery
[2022-01-23 07:40] LABS: Hemoglobin 11.2 g/dl (12.0-16.0)
[2022-01-23] MEDS: DOCUSATE SODIUM 100 MG CAP PO SCH ×2 (08:51→21:05)
[2022-01-23] MEDS: PRENATAL VITAMIN 1 TAB PO SCH (08:51)
[2022-01-23] MEDS: IBUPROFEN 600 MG TAB PO PRN ×3 (08:51→23:39)
[2022-01-23] MEDS: SERTRALINE HCL 50 MG TABLET PO SCH (08:52)
--- NOTE | 2022-01-24 07:42 | Obstetrical Progress Note ---
Date of Service <Javad Ulloa - Last Filed: 01/24/22 07:42> January 24, 2022 Assessment & Plan <Javad Ulloa - Last Filed: 01/24/22 07:42> (1) Status post vaginal delivery: - Feels well today. Eating well, voiding well, ambulating well. - Pain well controlled with ibuprofen 600mg Q4H PRN - Routine care -- OOB, ambulation, diet progression as tolerated - After discharge will have 6 week follow-up with Dr. Caldwell - Patient had proteuria with previous and was elevated one month ago. Though the proteuria during this was not has high has it was previously. Should have urine protein testing in 6 weeks after D/C and f/u with nephrology may be needed at that time. - Will D/C today. <Jade Hassan MD, FACOG - Last Filed: 01/24/22 07:58> (1) Status post vaginal delivery: Subjective <Javad Ulloa - Last Filed: 01/24/22 07:42> Patient is a 27 y/o female who is now PPD # 3 following spontaneous vag inal delivery at 39 weeks. Reports feeling well overall this morning. Mild abdominal cramping & 1/10 pain well managed on analgesics. Voiding well. Tolerating meals overnight and able to ambulate some. Able to pass gas and has not had a bowel movement at this time. Has some persistent lochia with some improvement this morning. Currently breast feeding. Review of Systems Denies fever, chills, sweats Denies shortness of breath, difficulty breathing, chest pain, palpitations, chest pressure. Denies breast pain. Denies dysuria. Denies headache or changes in vision. Physical Exam <Javad Ulloa - Last Filed: 01/24/22 07:42> General: Alert, oriented. No acute distress. Cardiac: Regular rate and rhythm, no murmurs/rubs/gallops. Respiratory: Clear to auscultation bilaterally a/p, no wheezes/rales/rhonchi. No increased work of breathing. Symmetrical chest rise. No respiratory distress. Abdomen: Soft, nontender, nondistended. Bowel sounds present. Uterus: Uterine fundus firm, palpable 2 cm below umbilicus. Lower Extremities: No lower extremity edema or swelling. No deep calf pain. Oumou's negative bilaterally. Results & Data ([facility]) <Javad Ulloa DO - Last Filed: 01/24/22 07:42> Vital Signs (Past 12 Hours) Vital Signs Temp Pulse Resp BP Pulse Ox O2 Del Method 01/23/22 23:40 36.8 C 98 H 18 113/80 98 Room Air <Jade Hassan MD, FACOG - Last Filed: 01/24/22 07:58> Co-Signing Physician Notes Resident Physician Supervision Note: I interviewed and examined the patient. Discussed with Dr. ulloa and agree with findings and plan as documented in the note. Any exceptions or clarifications are listed here: Doing well. Plan d/c. Will f/u with nephrology. Instructions given. Documented By: Jade Hassan MD, FACOG Resident Activity Tracking <Javad Ulloa DO - Last Filed: 01/24/22 07:42> Resident Involvement: Resident Care Provided Care Provided: OB Delivery
[2022-01-24] MEDS: PRENATAL VITAMIN 1 TAB PO SCH (07:54)
[2022-01-24] MEDS: IBUPROFEN 600 MG TAB PO PRN (07:54)
[2022-01-24] MEDS: DOCUSATE SODIUM 100 MG CAP PO SCH (07:54)
[2022-01-24] MEDS: SERTRALINE HCL 50 MG TABLET PO SCH (09:25)
== END 2022-01-24 13:45 | disposition home or self-care (01) | DRG 807 ==
LOC: OPB 14:16 → 4S1 14:18 → 4E2 01-22 01:46